=== PATIENT | female | born 2000 | race Caucasian/White ===

== ENCOUNTER 2020-01-31 07:38 | Outpatient (CLI) | payer OTHER ==
[2020-01-31 17:27] LABS: BHCG - Serum Negative (NEGATIVE); Pregs Control Background? CLEAR/WHITE (CLR/WHITE); Pregs Control Bar Appear? YES (CONTROL BAR)
[2020-02-01 13:11] LABS: SARS-CoV-2 MS2 Positive; SARS-CoV-2 N Gene Negative; SARS-CoV-2 S Gene Negative; SARS-CoV-2 orf1ab Negative
== END 2020-01-31 07:39 | disposition home or self-care (01) ==
LOC: LABBT 07:38
PROVIDERS: ATTEND Otolaryngology Plastic Surgery within the Head & Neck
DX: Z01.812 Encounter for preprocedural laboratory examination (principal); Z11.59 Encounter for screening for other viral diseases; J35.01 Chronic tonsillitis; J35.1 Hypertrophy of tonsils; J35.2 Hypertrophy of adenoids; J32.0 Chronic maxillary sinusitis; J32.2 Chronic ethmoidal sinusitis
CPT/HCPCS: 84703; 85014; 87635; U0003

== ENCOUNTER 2020-02-02 06:52 | Day surgery (SDC) | payer OTHER ==
[2020-01-28 13:07] VITALS: BMI 20.9
[2020-02-02] MEDS ORDERED: AFRIN NASAL MIST 15 ML BOT ONE ×2 (07:25→08:50)
[2020-02-02] MEDS ORDERED: Midazolam HCl 2 mg/2 ml Vial ONE (08:05)
[2020-02-02] MEDS ORDERED: Lidocaine 1% w/Epinephrine 1:100K 20 ML VIAL ONE (08:50)
[2020-02-02] MEDS ORDERED: EPINEPHrine 1 MG/ML AMP ONE (08:50)
[2020-02-02] MEDS ORDERED: Bacitracin Zinc Ointment 30 gm TUBE ONE (08:50)
[2020-02-02] MEDS ORDERED: Fentanyl 250 MCG/5 ML VIAL ONE (08:56)
[2020-02-02] MEDS ORDERED: Ferric Subsulfate (ASTRINGYN) 8 ML VIAL ONE (09:22)
[2020-02-02] MEDS ORDERED: methylPREDNISolone Acetate 40 mg/ml Vial ONE (09:29)
[2020-02-02] MEDS ORDERED: Lidocaine 1% PF 5 ML VIAL ONE (13:11)
[2020-02-02] MEDS ORDERED: PROPOFOL 200 MG/20 ML VIAL ONE (13:11)
[2020-02-02] MEDS ORDERED: Glycopyrrolate 0.2 MG/ML 5 ML SYRINGE ONE (13:11)
[2020-02-02] MEDS ORDERED: Rocuronium Bromide 10 MG/ML (10ML VIAL) ONE (13:11)
[2020-02-02] MEDS ORDERED: Ondansetron PF 4 MG/2 ML Vial ONE (13:11)
[2020-02-02] MEDS ORDERED: Dexamethasone 20 MG/5 ML VIAL ONE (13:11)
--- NOTE | 2020-02-03 08:56 | OP ---
DATE OF PROCEDURE: 02/02/2020 PREOPERATIVE DIAGNOSES: 1. Chronic sinusitis. 2. Bilateral inferior turbinate hypertrophy. 3. Nasal obstruction. 4. Chronic adenotonsillitis. 5. Adenotonsillar hypertrophy. POSTOPERATIVE DIAGNOSES: 1. Chronic sinusitis. 2. Bilateral inferior turbinate hypertrophy. 3. Nasal obstruction. 4. Chronic adenotonsillitis. 5. Adenotonsillar hypertrophy. PROCEDURES PERFORMED: 1. Bilateral endoscopic sinus surgery, total ethmoidectomies. 2. Bilateral endoscopic sinus surgery, maxillary antrostomies. 3. Bilateral endoscopic sinus surgery, frontal sinus exploration. 4. Bilateral endoscopic sinus surgery, sphenoidotomies. 5. Bilateral inferior turbinate submucosal resection. 6. Tonsillectomy and adenoidectomy. ESTIMATED BLOOD LOSS: 20 mL. COMPLICATIONS: None. ANESTHESIA: GETA. PROCEDURE IN DETAIL: After consent was obtained, the patient was identified, brought to the operating room, and placed on the operating table in the supine position. General endotracheal anesthesia and intravenous access was obtained and we proceeded with positioning the patient for oropharyngeal surgery. Oropharyngeal exposure was obtained with a Estefani-Dash mouth gag after a head drape was placed and secured with a towel clip. The Estefani-Dash mouth gag was then suspended from the Baires tray and palatal elevation was achieved with a red rubber catheter. The right tonsil was addressed first. We used a curved Allis to grasp the tonsil and retract it medially as an anterior pillar incision was made. The retrotonsillar fascial plane was then established and blunt dissection was performed with the suction cautery. Blood vessels were anticipated, identified, and cauterized as they were encountered. Ultimately, dissection was carried to the posterior tonsillar pillar mucosa which was incised hemostatically, as well as the base of tongue connection. The tonsil was then passed off as a specimen and bleeding points within the tonsillar bed were cauterized under direct visualization. We subsequently turned our attention to the contralateral side, where using a similar technique, a near identical procedure was performed. Again, the tonsil was grasped and retracted medially with a curved Allis. The retrotonsillar fascial plane was established and while the anterior pillar was retracted medially, the hemostatic blunt dissection of the tonsil with a suction cautery was performed with blood vessels anticipated, identified, and cauterized as they were encountered. Again, dissection continued to the base of tongue and posterior tonsillar pillar mucosa which was incised in a hemostatic fashion. The tonsillar beds were then carefully inspected and bleeding points were identified and cauterized with a suction cautery. After this portion of the procedure, hemostasis was completely obtained. Under direct mirror visualization, we visualized the adenoid pad. Under direct mirror visualization, we removed the bulk of the adenoid tissue with the adenoid curette. We then packed the nasopharynx for an appropriate period of time with Ramirez-Synephrine saturated tonsillar sponges. After a period of observation, we removed the pack. Under indirect mirror visualization, we obtained hemostasis and vaporization of residual adenoid tissue with electrocautery. The patient's oral cavity was copiously irrigated with iced saline and subsequently suctioned. After completion of the procedure, the nasal cavity and oropharynx were irrigated and suctioned as were the gastric contents. The patient was then awakened and transferred to the recovery room where the patient remained in stable condition prior to discharge to Day Stay. Following this, 1% lidocaine with 1:100,000 epinephrine were injected into the middle turbinates and lateral nasal wall bilaterally. Following this, the 0-degree endoscope was used to visualize the middle turbinate and the middle turbinate was medially fractured using a [place] elevator. Following this, the uncinate process was identified and was examined. The uncinate process was noted to be inflamed and laterally displaced bilaterally. Following this, a ball-ended probe was used to anteriorly fracture the uncinate process bilaterally. Following this, the 0-degree microdebrider and the up-biting Blakesley forceps were used to remove the uncinate process bilaterally. Following this, the natural maxillary sinus ostia was identified with the 0-degree endoscope and the ball-ended probe. The natural maxillary ostia was then widened using a 40-degree microdebrider and the straight Blakesley forceps bilaterally. Following this, the ethmoidal bulla was identified bilaterally. A 0-degree microdebrider was used to puncture the ethmoidal bulla on its medial and inferior aspect bilaterally. Following this, the 0-degree microdebrider and the up-biting Blakesley forceps were used to remove the ethmoidal bulla. Following this, the grand lamella was identified posterior to this area and was punctured using the 0-degree microdebrider bilaterally. Following this, the ethmoidal cells were opened from the posterior to the anterior using the 0-degree microdebrider, the 40-degree microdebrider and the up-biting Blakesley forceps bilaterally. Following this, the 45-degree endoscope and the 40-degree microdebrider blade were used to further remove the anterior ethmoidal cells to the level of the frontal sinus recess bilaterally. Following this, the anterior wall of the sphenoid sinus was identified and a sphenoidotomy was created bilaterally using the 0-degree microdebrider. The sphenoid ostia were then widened in a medial and inferior direction with the 0-degree microdebrider bilaterally. Following this, 45-degree endoscope was then used to visualize the frontal sinus ostia, which was widened with the 40-degree microdebrider blade and the up-biting Blakesley forceps bilaterally. Following this, the inferior turbinates were punctured on the anterior-inferior aspect and submucosal resection was performed of the anterior and inferior aspect of the inferior turbinates bilaterally. Following this, the nasal cavity was irrigated and NasoPore packing was placed within the middle meatus bilaterally. The patient tolerated the procedure well. Job ID: [id number]
== END 2020-02-02 11:16 | disposition home or self-care (01) ==
LOC: SDC 06:52
PROVIDERS: ATTEND Otolaryngology Plastic Surgery within the Head & Neck
PROC: 099X8ZZ Drainage of Left Sphenoid Sinus, Via Natural or Artificial Opening Endoscopic (ICD-10-PCS; principal; 2020-02-02)
PROC: 0CTQXZZ Resection of Adenoids, External Approach (ICD-10-PCS; principal; 2020-02-02)
PROC: 09BV8ZZ Excision of Left Ethmoid Sinus, Via Natural or Artificial Opening Endoscopic (ICD-10-PCS; principal; 2020-02-02)
PROC: 09BU8ZZ Excision of Right Ethmoid Sinus, Via Natural or Artificial Opening Endoscopic (ICD-10-PCS; principal; 2020-02-02)
PROC: 0CTPXZZ Resection of Tonsils, External Approach (ICD-10-PCS; principal; 2020-02-02)
PROC: 099R8ZZ Drainage of Left Maxillary Sinus, Via Natural or Artificial Opening Endoscopic (ICD-10-PCS; principal; 2020-02-02)
PROC: 09BT8ZZ Excision of Left Frontal Sinus, Via Natural or Artificial Opening Endoscopic (ICD-10-PCS; principal; 2020-02-02)
PROC: 09BL8ZZ Excision of Nasal Turbinate, Via Natural or Artificial Opening Endoscopic (ICD-10-PCS; principal; 2020-02-02)
PROC: 099W8ZZ Drainage of Right Sphenoid Sinus, Via Natural or Artificial Opening Endoscopic (ICD-10-PCS; principal; 2020-02-02)
PROC: 099Q8ZZ Drainage of Right Maxillary Sinus, Via Natural or Artificial Opening Endoscopic (ICD-10-PCS; principal; 2020-02-02)
PROC: 09BS8ZZ Excision of Right Frontal Sinus, Via Natural or Artificial Opening Endoscopic (ICD-10-PCS; principal; 2020-02-02)
DX: J35.03 Chronic tonsillitis and adenoiditis (principal); J34.89 Other specified disorders of nose and nasal sinuses; J34.3 Hypertrophy of nasal turbinates; J32.8 Other chronic sinusitis
CPT/HCPCS: 88304; J0171; J1030; J1100; J2001; J2250; J2405; J2704; J3010